=== PATIENT | male | born 1940 | race Caucasian/White ===

== ENCOUNTER 2016-08-11 11:51 | Day surgery (SDC) | payer MEDICARE, OTHER ==
[2016-08-07 13:38] LABS: BASOPHILS 0.4 %; BASOPHILS ABSOLUTE 0.04 10/3/uL (0.0-0.16); EOSINOPHILS 4.9 %; EOSINOPHILS ABSOLUTE 0.45 10/3/uL (0.0-0.53); HEMATOCRIT 44.4 % (40.0-51.0); HEMOGLOBIN 15.4 g/dL (13.6-17.8); IMMATURE GRANULOCYTES 0.3 %; IMMATURE GRANULOCYTES ABSOLUTE 0.03 10/3/uL (0.0-0.11); LYMPHOCYTES 29.6 %; LYMPHOCYTES ABSOLUTE 2.72 10/3/uL (0.67-4.30); MEAN CORPUS HGB CONC 34.7 g/dL (32.0-36.0); MEAN CORPUSCULAR HEMOGLOB 31.5 pg (26.0-34.0); MEAN CORPUSCULAR VOLUME 90.8 fL (80-100); MEAN PLATELET VOLUME 9.7 fL (9.2-13.0); MONOCYTES ABSOLUTE 0.92 10/3/uL (0.21-1.20); NEUTROPHILS 54.8 %; NEUTROPHILS ABSOLUTE 5.04 10/3/uL (2.02-8.40); PLATELET COUNT 197 10/3/uL (150-400); RBC DISTRIBUTION WIDTH 12.8 % (12.0-16.0); RED CELL COUNT 4.89 10/6/uL (4.7-6.1); WHITE BLOOD CELLS 9.2 10/3/uL (4.5-10.5)
[2016-08-07 13:39] LABS: MANUAL DIFF NO %
[2016-08-07 13:43] LABS: PARTIAL THROMBO TIME 29.7 SEC (22.5-37.2); PROTIME (NOT ORD) 13.5 SEC (12.0-14.5)
[2016-08-07 13:52] LABS: BUN (BLOOD UREA NITROGEN) 15 MG/DL (6-23); CALCIUM, SERUM 9.1 MG/DL (8.5-10.4); CHLORIDE, SERUM 107 MMOL/L (96-112); CO2 (CARBON DIOXIDE) 28 MMOL/L (24-34); CREATININE 1.19 MG/DL (0.70-1.30); GFR AFRICAN AMERICAN 68 ML/MIN (>=60); GFR NON AFRICAN AMERICAN 59 ML/MIN (>=60); GLUCOSE, SERUM 88 MG/DL (60-99); POTASSIUM, SERUM 4.4 MMOL/L (3.5-5.3); SODIUM, SERUM 142 MMOL/L (135-148)
--- NOTE | ~2016-08-11 | OP ---
Record Of Operation [facility] [address] [place]. [address] NAME: WILLIS FRANCES : 38 STATUS : [facility]#: [id number] AGE: 76 ADM/REG DATE : 08/11/16 MR#: [id number] REPORT SERV DATE: 08/11/16 DICTATED BY: FEROZ RAO DATE: 08/11/16 REPORT STATUS : Draft TRANSCRIBED BY: MODL DATE: 08/11/16 DATE OF PROCEDURE: 08/11/2016 PREOPERATIVE DIAGNOSES: 1. Redundant foreskin. 2. Preputial adhesions. POSTOPERATIVE DIAGNOSES: 1. Redundant foreskin. 2. Preputial adhesions. PROCEDURE PERFORMED: Circumcision, lysis of preputial adhesions. SURGEON: Feroz Rao M.D. ANESTHESIA: General. ESTIMATED BLOOD LOSS: 5 mL. INDICATIONS: This is a 76-year-old, white male, who has a history of circumcision many years ago. He has significant remaining redundant foreskin with dense preputial adhesions. We are planning lysis of adhesions and circumcision. Risks of infection, bleeding, failure, need for further surgery have been discussed. PROCEDURE IN DETAIL: The patient was taken to the operating room and underwent a general anesthetic. He was placed in a supine position on the table, and his external genitalia were sterilely prepped and draped. His penis was inspected and there was a moderate amount of redundant tissue and also there were dense preputial adhesions, worse, really circumferentially. Some of the adhesions could be bluntly lysed. The rest had to be divided sharply using scissors or the Bovie. Following this, with the foreskin replaced over the glans, a circumferential incision was made overlying the burks with the glans on the foreskin. With the foreskin retracted, a second circumferential incision was made right at the base of the burks of the glans circumferentially. This also freed up some very tight ventral tethering. The redundant foreskin was sharply excised using the Bovie device. Hemostasis was obtained with electrocautery. The foreskin was then reapproximated to the base of the burks of the glans using simple interrupted sutures of 3-0 chromic. This was carried out circumferentially. I thought the cosmetic result looked very good. A Neosporin Vaseline gauze and clean wrap dressing was then applied. The patient received a penile block of 10 mL of 0.5% plain Marcaine. He tolerated the procedure very well. There were no complications. He was taken to recovery in stable condition. DS/KODI Feroz Rao, Record Of Operation [address] [address] NAME: WILLIS FRANCES : 38 STATUS : [facility] PAT#: [id number] AGE: 76 ADM/REG DATE : 08/11/16 MR#: [id number] REPORT SERV DATE: 08/11/16 DICTATED BY: FEROZ RAO DATE: 08/11/16 REPORT STATUS : Draft TRANSCRIBED BY: KODI DATE: 08/11/16 Donna / [id number] CC: Donna Menard M.D.
[~2016-08-11 11:51] MED LIST: ALEVE220 MG PO; ALKA-SELTZER O1 EACH PO; CLARIT10 PO; MULTIPLE VIT PO; SIN25 PO; SPIRIVA INH; VITAMIN D1000 UNI1 PO; Z100 PO; ZESTRIL40 MG PO
== END 2016-08-11 18:16 | disposition home or self-care (01) ==
LOC: SDC 11:51
PROVIDERS: Urology
PROC: 0VNTXZZ Release Prepuce, External Approach (ICD-10-PCS; 2016-08-11)
PROC: 0VTTXZZ Resection of Prepuce, External Approach (ICD-10-PCS; principal; 2016-08-11 13:45)
DX: N48.0 Leukoplakia of penis (principal); N47.5 Adhesions of prepuce and glans penis; I71.2 Thoracic aortic aneurysm, without rupture; I10 Essential (primary) hypertension; J44.9 Chronic obstructive pulmonary disease, unspecified; G47.33 Obstructive sleep apnea (adult) (pediatric); G25.81 Restless legs syndrome; H91.90 Unspecified hearing loss, unspecified ear; Z87.891 Personal history of nicotine dependence; Z99.89 Dependence on other enabling machines and devices; Z79.82 Long term (current) use of aspirin; Z79.899 Other long term (current) drug therapy; Z98.890 Other specified postprocedural states; Z85.828 Personal history of other malignant neoplasm of skin
CPT/HCPCS: 71020; 80048; 85025; 85610; 85730; 88304; 93005; A9270-GY; J0690; J2250; J2405; J3010